=== PATIENT | male | born 1980 | race African-American/Black ===

== ENCOUNTER 2016-10-21 23:26 | Emergency (ER) | payer SELFPAY ==
[~2016-10-21] VITALS: Ht 185.4 cm; Wt 79.4 kg
--- NOTE | 2016-10-22 00:14 | NUR ---
Pt to room and changed into gown. Pt believes he is having an allergic reaction to laundry detergent. Pt has noted red raised bumps to trunk of body. As well as noted self inflicted scratch dela cruz from itching. Pt denies shortness of breath, denies any trouble breathing. Airway patent, speaking full sentences. Resp even and unlabored. Pt sts he took two doses of benadryl yesterday with minimal relief. Pt resting in position of comfort for self. Awaiting further eval.
[2016-10-22] MEDS ORDERED: EPINEPHRINE 1 MG/1 ML AMP SQ ONE (00:30)
[2016-10-22] MEDS ORDERED: FAMOTIDINE 20 MG TABLET PO ONE (00:30)
[2016-10-22] MEDS ORDERED: predniSONE 10 MG TABLET PO ONE (00:30)
[2016-10-22] MEDS ORDERED: FAMOTIDINE 20 MG TABLET ONE (00:59)
[2016-10-22] MEDS ORDERED: EPINEPHRINE 1 MG/1 ML AMP ONE (00:59)
[2016-10-22] MEDS ORDERED: predniSONE 50 MG TABLET ONE (01:00)
[2016-10-22] MEDS ORDERED: predniSONE 10 MG TABLET ONE (01:00)
--- NOTE | 2016-10-22 01:00 | NUR ---
Pt seen by . Pt placed on monitor and medicated for allergic reaction. Will monitor for effects of medication. Pt resting in position of comfort for self. Resp even and unlabored.
--- NOTE | 2016-10-22 01:20 | NUR ---
Allergic reaction improving. Pt stable for discharge per MD. Pt given ACI. Pt verbalized understanding of dc instructions. Pt ambulated out of er with steady gait.
[2016-10-22 02:13] VITALS: BP 140/61
== END 2016-10-22 01:20 | disposition home or self-care (01) ==
LOC: ER 23:33
DX: L25.9 Unspecified contact dermatitis, unspecified cause (principal); Z91.018 Allergy to other foods
CPT/HCPCS: A4663; J0171; J7512